=== PATIENT | male | born 1975 | race Caucasian/White ===

== ENCOUNTER 2020-07-28 11:24 | Outpatient (CLI) | payer OTHER, SELFPAY ==
--- NOTE | ~2020-07-28 | XR_ITS ---
XR wrist RT min 3V DATE: 07/28/2020 12:01 INDICATION: Acute right wrist fracture one month ago. Pain. TECHNIQUE: 4 views including AP and lateral projections COMPARISON: None FINDINGS: There is a comminuted intra-articular fracture of the distal radius. There is up to 6 or 7 mm anterior distraction/separation of the anterior articular fragment. There is some sclerosis and pe riosteal reaction indicating healing. No other fracture is evident. No dislocation. IMPRESSION: Comminuted intra-articular fracture of the distal radius Reviewed, dictated and finalized at location B.
[2020-07-28 12:07] LABS: Basophils Absolute Auto 0.1 K/mm3 (0.0-0.1); Basophils Percent Auto 0.8 % (0.2-1.2); Eosinophils Absolute Auto 0.2 K/mm3 (0-0.3); Eosinophils Percent Auto 1.7 % (0-4.4); Hematocrit 45.7 % (42.0-52.0); Hemoglobin 15.3 g/dL (14.0-18.0); Immature Granulocyte Absolute 0.12 K/mm3 (0.00-0.031); Immature Granulocyte Percent A 1.1 % (0-0.5); Immature Platelet Fraction Pct 20.8 % (0.9-11.2); Lymphocytes Absolute Auto 3.08 K/mm3 (0.9-3.2); Mean Corpuscular HGB Conc 33.5 g/dl (32-36); Mean Corpuscular Hemoglobin 32.6 pg (26-34); Mean Corpuscular Volume 97.2 fl (80-100); Monocytes Absolute Auto 1.1 K/mm3 (0.1-0.6); Monocytes Percent Auto 9.7 % (2.6-8.5); Neutrophils Absolute Auto 6.5 K/mm3 (1.3-6.7); Neutrophils Percent Auto 58.7 % (45.5-73.1); Platelet Count Result 205 k/mm3 (150-375); Red Cell Distribution Width 13.2 % (11.5-14.5)
[2020-07-28 12:15] LABS: Alanine Aminotransferase 42 U/L (4-50); Albumin Level 4.2 g/dL (3.5-5.1); Alkaline Phosphatase 123 U/L (38-126); Anion Gap 6 mmol/L (8-16); Aspartate Amino Transferase 31 U/L (17-59); Bilirubin,Total 0.4 mg/dL (0.2-1.3); Blood Urea Nitrogen 12 mg/dL (9-20); Calcium 9.6 mg/dL (8.4-10.2); Carbon Dioxide 28 mmol/L (22-30); Chloride 106 mmol/L (98-107); Cholesterol 230 mg/dL (0-200); Estimated Glomerular Filt Rate > 60; Glucose 103 mg/dL (75-110); HDL Direct 38 mg/dL; Potassium 4.1 mmol/L (3.4-5.0); Sodium 140 mmol/L (137-145); Triglycerides 204 mg/dL (<150)
[2020-07-28 12:26] LABS: LDL Cholesterol Direct 154 mg/dL
[2020-07-28 12:45] LABS: Prostate Specific Antigen 0.6 ng/mL (< OR = 4.0); Thyroid Stimulating Hormone 0.968 uIU/mL (0.465-4.680)
[2020-07-28 13:03] LABS: Free T4 Free Thyroxine 1.06 ng/mL (0.78-2.19); Vitamin D 25 Hydroxy 39.7 ng/mL
[2020-07-31 08:03] LABS: Triiodothyronine T3 Free 3.2 pg/mL (2.3-4.2)
== END 2020-07-28 11:25 | disposition home or self-care (01) ==
PROVIDERS: PCP Family Medicine
DX: E55.9 Vitamin D deficiency, unspecified (principal); Z12.5 Encounter for screening for malignant neoplasm of prostate; Z13.29 Encounter for screening for other suspected endocrine disorder; Z13.220 Encounter for screening for lipoid disorders; Z13.6 Encounter for screening for cardiovascular disorders; Z13.0 Encounter for screening for diseases of the blood and blood-forming organs and certain disorders involving the immune mechanism; I10 Essential (primary) hypertension; S52.571A Other intraarticular fracture of lower end of right radius, initial encounter for closed fracture; X58.XXXA Exposure to other specified factors, initial encounter
CPT/HCPCS: 36415; 73110; 80053; 80061; 82306; 84153; 84439; 84443; 84481; 85025; 85055; G0103

== ENCOUNTER 2020-10-11 14:56 | Outpatient (CLI) | payer OTHER, SELFPAY ==
[2020-10-11 16:23] LABS: Prostate Specific Antigen 0.5 ng/mL (< OR = 4.0); Total Triiodothyronine (T3) 1.14 NG/ML (0.97-1.69)
[2020-10-11 17:31] LABS: Free T4 Free Thyroxine 1.12 ng/mL (0.78-2.19); Vitamin D 25 Hydroxy 34.9 ng/mL
[2020-10-14 04:49] LABS: FSH 8.6 mIU/mL (1.6-8.0); Prolactin 7.3 ng/mL (***)
[2020-10-14 11:24] LABS: Sex Hormone Binding Globulin 19 nmol/L (10-50)
[2020-10-14 17:53] LABS: Testosterone Free 44.3 pg/mL (35.0-155.0); Testosterone Total 262 ng/dL (250-1100)
== END 2020-10-11 14:57 | disposition home or self-care (01) ==
PROVIDERS: PCP Family Medicine; Visit Provider Nurse Practitioner Family
DX: N52.9 Male erectile dysfunction, unspecified (principal)
CPT/HCPCS: 36415; 82306; 83001; 83002; 84146; 84153; 84270; 84402; 84403; 84439; 84443; 84480; G0103

== ENCOUNTER 2021-01-03 13:58 | Emergency (ER) | payer OTHER, SELFPAY ==
--- NOTE | ~2021-01-03 | XR_ITS ---
EXAMINATION: XR chest 2V DATE: 01/03/2021 14:47 INDICATION: Shortness of breath and cough TECHNIQUE: Frontal and lateral views of the chest are obtained COMPARISON: 01/19/2007 FINDINGS: The lungs are free of acute opacities. There is no pleural effusion or pneumothorax. The ca rdiomediastinal silhouette is normal. There is moderate thoracic spondylosis. There are partially hector ged changes of posterior lumbar fusion procedure. IMPRESSION: 1. No acute cardiopulmonary abnormality. Reviewed, dictated and finalized at location A.
[2021-01-03 14:19] VITALS: BP 132/67; PULSE 76; RESP 20; TEMP 37.8; O2SAT 98
--- NOTE | 2021-01-03 14:23 | ECG_ITS ---
Measurements Intervals [place] Rate: 75 P: 44 TX: 171 QRS: 23 QRSD: 97 T: 10 QT: 298 QTc: 334 Interpretive Statements SINUS RHYTHM VOLTAGE CRITERIA FOR LVH MINIMAL Q WAVES- HIGH LATERAL LEADS NONSPECIFIC T-WAVE ABNORMALITY- INF/LAT LEADS BORDERLINE ECG Electronically Signed On 01-03-2021 16:38:11 CDT by Adolfo Yates D.O.
[2021-01-03 14:42] LABS: Basophils Absolute Auto 0.1 K/mm3 (0.0-0.1); Basophils Percent Auto 0.8 % (0.2-1.2); Eosinophils Absolute Auto 0.4 K/mm3 (0-0.3); Eosinophils Percent Auto 2.7 % (0-4.4); Hematocrit 41.1 % (42.0-52.0); Immature Granulocyte Absolute 0.23 K/mm3 (0.00-0.031); Immature Granulocyte Percent A 1.6 % (0-0.5); Immature Platelet Fraction Pct 18.8 % (0.9-11.2); Lymphocytes Absolute Auto 3.51 K/mm3 (0.9-3.2); Lymphocytes Percent Auto 24.5 % (18.3-44.2); Mean Corpuscular HGB Conc 34.1 g/dl (32-36); Mean Corpuscular Volume 96.9 fl (80-100); Monocytes Absolute Auto 0.9 K/mm3 (0.1-0.6); Monocytes Percent Auto 6.5 % (2.6-8.5); Neutrophils Absolute Auto 9.2 K/mm3 (1.3-6.7); Neutrophils Percent Auto 63.9 % (45.5-73.1); Platelet Count Result 161 k/mm3 (150-375); Red Blood Count 4.24 M/mm3 (4.6-6.20); Red Cell Distribution Width 13.6 % (11.5-14.5); White Blood Count 14.3 K/mm3 (4.5-10.0)
[2021-01-03 14:51] LABS: Anion Gap 9 mmol/L (8-16); Blood Urea Nitrogen 10 mg/dL (9-20); Calcium 8.9 mg/dL (8.4-10.2); Carbon Dioxide 23 mmol/L (22-30); Chloride 106 mmol/L (98-107); Estimated CRCL calculation 110 ml/min; Estimated Glomerular Filt Rate > 60; Glucose 153 mg/dL (65-110); Potassium 3.4 mmol/L (3.4-5.0); Sodium 138 mmol/L (137-145)
[2021-01-03 14:58] LABS: Platelet Estimate Adequate (Adequate)
[2021-01-03 17:06] VITALS: BP 135/72; PULSE 72; TEMP 36.8; O2SAT 97
--- NOTE | 2021-01-03 17:54 | ED.GENADULT ---
HPI - General Adult General Chief complaint: Shortness of Breath/Dyspnea Stated complaint: SOB with exertion Time Seen by Provider: 01/03/21 17:53 Source: patient Mode of arrival: ambulatory Limitations: no limitations History of Present Illness HPI narrative: Patient is here for recurrent shortness of breath. He states that since September he has been seen in several hospitals and treated with inhalers and to 5-day courses of steroids for shortness of breath diagnosed as with bronchitis and COPD. He states that he is fine on steroids, as it is a stop he starts wheezing again despite being on albuterol nebulizer and inhaler at home. He had Covid 4 weeks ago. 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 He denies any fever. He has had a productive cough he states that last night was productive of a very thick substance. He did not see the color as it was dark outside. He can no longer sleep lying down, states he feels like his lungs are filling up with fluid . Onset (ago): month(s) Relieving factors: none Exacerbating factors: movement Related Data Allergies Allergy/AdvReac Type Severity Reaction Status Date / Time baclofen AdvReac Intermediate Dyspnea / Verified 12/08/20 11:22 SOB Review of Systems Review of Systems: All systems reviewed & are unremarkable except as noted in HPI and below [facility] Surgical History Surgical History (Updated 01/03/21 @ 18:15 by Gabbie Navarro PA-C) H/O spinal fusion Social History Social History Smoking packs per day: 0.5 Smoking cigarettes per day: 10.0 Years smoked: 30 Smoking pack-years: 15.00 Smoking status: Current every day smoker Tobacco type: cigarettes Spiritual care concerns: No Exam Const: General: healthy appearing, no acute distress and alert Orientation/consciousness: patient oriented x3 HENMT: Head: normal to inspection Eyes: Pupils: Equal, round and reactive pupils present Neck: Neck: no lymphadenopathy Resp: Effort & Inspection: normal respiratory effort Auscultation: wheezes expiratory wheezes and throughout Cardio: Rate: regular rate Rhythm: regular rhythm Skin: General skin exam: normal color Extrem: General: normal to inspection Psych: Mental Status: mental status grossly normal Course Course Emergency Course: This patient has had 2 oral courses of steroids in the past 3 months will start on inhaled steroid with long-acting bronchodilator. Lung sounds are clear after his breathing treatment. Vital Signs Vital signs: Vital Signs Temperature 37.8 C H 01/03/21 14:19 Pulse Rate 76 01/03/21 14:19 Respiratory Rate 20 01/03/21 14:19 Blood Pressure 132/67 01/03/21 14:19 Pulse Oximetry 98 01/03/21 14:19 Temperature 36.8 C 01/03/21 17:06 Pulse Rate 79 01/03/21 19:35 Respiratory Rate 20 01/03/21 19:35 Blood Pressure 133/84 01/03/21 19:35 Pulse Oximetry 98 01/03/21 19:35 Medical Decision Making Vital Signs Vital Signs: Vital Signs Temperature 37.8 C H 01/03/21 14:19 Pulse Rate 76 01/03/21 14:19 Respiratory Rate 20 01/03/21 14:19 Blood Pressure 132/67 01/03/21 14:19 Pulse Oximetry 98 01/03/21 14:19 Temperature 36.8 C 01/03/21 17:06 Pulse Rate 79 01/03/21 19:35 Respiratory Rate 20 01/03/21 19:35 Blood Pressure 133/84 01/03/21 19:35 Pulse Oximetry 98 01/03/21 19:35 Lab Data Result diagrams: 01/03/21 14:29 01/03/21 14:29 Labs: Lab Results 01/03/21 01/03/21 01/03/21 Range/Units 14:29 14:29 14:29 WBC 14.3 H (4.5-10.0) K/mm3 RBC 4.24 L (4.6-6.20) M/mm3 Hgb 14.0 (14.0-18.0) g/dL Hct 41.1 L (42.0-52.0) % MCV 96.9 (80-100) fl MCH 33.0 (26-34) pg MCHC 34.1 (32-36) g/dl RDW 13.6 (11.5-14.5) % Plt Count 161 (150-375) k/mm3 MPV 13.0 H (7.4-10.4) fl Immature Gran % (Auto) 1.6 H (0-0.5) % Neut % (Auto) 63.9 (45.5-73.1) % Lymph % (Auto)
--- NOTE | 2021-01-03 18:00 | PC.NURSE ---
Called lab and spoke to Lorrie to add on BNP [phone]
[2021-01-03 18:20] VITALS: BP 137/86; PULSE 72; RESP 16; O2SAT 98
[2021-01-03 18:22] LABS: NT Pro B Type Natriuretic Pept 39 pg/mL (5-100)
[2021-01-03] MEDS: ALBUTEROL SULFATE NEB 2.5 MG/3 ML INH 5 MG INHALATION (18:25)
--- NOTE | 2021-01-03 19:30 | PC.NURSE ---
Assumed care of pt at this time. Pt alert and upright on stretcher, neb treatment in place. Pt updated on POC.
[2021-01-03 19:35] VITALS: BP 133/84; PULSE 79; RESP 20; O2SAT 98
[2021-01-03 20:55] VITALS: BP 121/77; PULSE 69; RESP 16; O2SAT 100
== END 2021-01-03 20:58 | disposition home or self-care (01) ==
PROVIDERS: Emergency Medicine; Physician Assistant; Emergency Provider Emergency Medicine; PCP Family Medicine
DX: J45.41 Moderate persistent asthma with (acute) exacerbation (principal); J44.9 Chronic obstructive pulmonary disease, unspecified; Z98.1 Arthrodesis status; Z86.16 Personal history of COVID-19; F17.210 Nicotine dependence, cigarettes, uncomplicated
CPT/HCPCS: 36415; 71046; 80048; 83880; 85025; 85055; 93005; 99284

== ENCOUNTER 2021-08-01 17:04 | Emergency (ER) | payer OTHER, SELFPAY ==
--- NOTE | ~2021-08-01 | CT_ITS ---
EXAMINATION: CT brain wo con DATE: 08/01/2021 18:28 INDICATION: Headaches. Vision changes. TECHNIQUE: Computed tomography (CT) of the head was performed without intravenous contrast. The mA wa s adjusted according to patient size. Iterative reconstruction technique was employed. Exam dose: 60 5.33 mGy-cm total exam DLP. COMPARISON: 01/19/2007 CT brain FINDINGS: No intracranial mass lesion or hemorrhage or cerebrovascular accident. No midline shift or mass effect effect. Normal ventricular size. No subdural or epidural disha. The orbits are unremarkable. No fracture or bone destruction of the cranial vault. Mild patchy soft tissue thickening of the left ethmoid air cells. The included paranasal sinuses are otherwise unremarkable. The mastoid air cells are aerated. IMPRESSION: No significant abnormality Reviewed, dictated and finalized at Location A. Reviewed, dictated and finalized at location A. IMPRESSION: No significant abnormality
[2021-08-01 17:30] VITALS: BP 149/79; PULSE 66; RESP 18; TEMP 36.6; O2SAT 98
--- NOTE | 2021-08-01 18:14 | ED.EYEPROB ---
HPI - Eye Problem General Chief complaint: Eye Problems <Milly Workman PA-C - Last Filed: 08/01/21 19:51> Stated complaint: left eye tunnel vision <Milly Workman PA-C - Last Filed: 08/01/21 19:51> Time Seen by Provider: 08/01/21 17:54 <Milly Workman PA-C - Last Filed: 08/01/21 19:51> Source: patient <Milly Workman PA-C - Last Filed: 08/01/21 19:51> Mode of arrival: ambulatory <Milly Workman PA-C - Last Filed: 08/01/21 19:51> Limitations: no limitations <ABEL Mcgarry Last Filed: 08/01/21 19:51> History of Present Illness HPI Narrative: Patient is a 45-year-old male, with Hx of HTN, HLD, who presents to the ED with report of headaches and vision changes. Patient reports the symptoms have been happening for the past 4 weeks. He states in the mornings he first experiences a sensation that he describes of having water fci filling his left eye, like his eye is swimming. He states he has blurry vision in the center of his eye and the periphery is dark/shaded. He does report occasionally it seems like a shade is coming down on his left eye. He states this water sensation will last for 15 to 20 minutes at a time. After this initial water sensation, he experiences flashes of floaters and light in his left eye. He then experiences a headache approximately 3 hours later. He states the headache initially begins behind his left eye, like pressure behind his eye, then proceeds to the top of his head. He does take ibuprofen for this relieves his pain. The flashes and floaters will present intermittently throughout the day. He states the symptoms occur every day. 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 He saw his PCP for this today and was advised to come to the ER for further evaluation. Patient also mentions having an episode of disequilibrium 2 weeks ago while at work, noting he felt like he was walking sideways. He experienced the floaters just before that. Patient denies any fevers, chills, pain with eye movement, color loss, redness, eye discharge. No N/V, photophobia, phonophobia, weakness, numbness. <Milly Workman PA-C - Last Filed: 08/01/21 19:51> Related Data Allergies/adverse reactions: Allergies Allergy/AdvReac Type Severity Reaction Status Date / Time baclofen AdvReac Intermediate Dyspnea / Verified 08/01/21 18:17 SOB <Milly Workman PA-C - Last Filed: 08/01/21 19:51> Review of Systems Review of Systems: CONSTITUTIONAL: Denies fever, chills. EYES: Reports left eye blurry vision centrally, dark peripherally, flashers/floaters. Denies photophobia, redness, or discharge. ENT: Denies phonophobia. GASTROINTESTINAL: Denies nausea, vomiting. GENITOURINARY: Denies dysuria or hematuria. NEUROLOGIC: Reports headache. Denies numbness, or weakness. <Milly Workman PA-C - Last Filed: 08/01/21 19:51> All systems reviewed & are unremarkable except as noted in HPI and below <Milly Workman PA-C - Last Filed: 08/01/21 19:51> [facility] Past Medical History Medical History: Medical History Hyperlipidemia Hypertension <Milly Workman PA-C - Last Filed: 08/01/21 19:51> Surgical History Surgical History: Surgical History H/O spinal fusion <Milly Workman PA-C - Last Filed: 08/01/21 19:51> Social History Social History: Social History Smoking packs per day: 0.5 Smoking cigarettes per day: 10.0 Years smoked: 30 Smoking pack-years: 15.00 Smoking status: Current every day smoker Tobacco type: cigarettes Spiritual care concerns: No <Milly Workman PA-C - Last Filed: 08/01/21 19:51> Exam Narrative: GENERAL: Well appearing, well-nourished, non-toxic, in no acute distress.
[2021-08-01 19:43] VITALS: BP 136/79; PULSE 76; RESP 18; O2SAT 98
[2021-08-01] MEDS: ACETAMINOPHEN 500 MG TABLET 1000 MG PO (19:50)
--- NOTE | 2021-08-01 19:54 | PC.NURSE ---
Pt and provider discussed need for transfer. Pt and provider discussed pt going by private vehicle. Pt and agreed. is transporting pt. Pt signed consent. CT called for disk. Report called to Keyana at [facility]
== END 2021-08-01 20:04 | disposition short-term general hospital (02) ==
PROVIDERS: Emergency Provider Emergency Medicine; PCP Family Medicine
DX: R51.9 Headache, unspecified (principal); H53.8 Other visual disturbances; H43.392 Other vitreous opacities, left eye; E78.5 Hyperlipidemia, unspecified; I10 Essential (primary) hypertension; F17.210 Nicotine dependence, cigarettes, uncomplicated; Z98.1 Arthrodesis status
CPT/HCPCS: 70450; 99284; A9270

== ENCOUNTER 2021-08-13 13:25 | Outpatient (CLI) | payer OTHER, SELFPAY ==
--- NOTE | ~2021-08-13 | MR_ITS ---
. EXAMINATION: MR brain/brain stem wo/w con DATE: 08/13/2021 14:23 INDICATION: Headache. Visual disturbance. TECHNIQUE: Magnetic resonance imaging (MRI) of the brain and brainstem was performed without and with 18 mL MultiHance intravenous contrast. Sequences included sagittal and axial T1-weighted FSE, axial diffusion-weighted FS EPI, axial T2*-weighted GRE, axial T2-weighted FLAIR Propeller, and axial T2-we ighted Propeller. Postcontrast sequences included axial and coronal T1-weighted FSE. Apparent diffusi on coefficient (ADC) maps were created. COMPARISON: Head CT 08/01/2021 FINDINGS: There is no intracranial hemorrhage, acute infarction, or abnormal intracranial mass lesion . The ventricles are normal in size. The orbits are normal. There is mild mucosal thickening in the p aranasal sinuses. The mastoid air cells are normal. IMPRESSION: 1. Normal brain. Reviewed, dictated and finalized at location A. IMPRESSION: 1. Normal brain.
[2021-08-13 14:02] LABS: Estimated Glomerular Filt Rate > 60
== END 2021-08-13 13:26 | disposition home or self-care (01) ==
PROVIDERS: PCP Family Medicine; Visit Provider Nurse Practitioner Adult Health
DX: R51.9 Headache, unspecified (principal); H53.9 Unspecified visual disturbance
CPT/HCPCS: 70553; A9577

== ENCOUNTER 2021-09-18 14:59 | Emergency (ER) | payer OTHER, SELFPAY ==
--- NOTE | ~2021-09-18 | CT_ITS ---
EXAMINATION: CT abdomen pelvis wo con DATE: 09/18/2021 16:32 INDICATION: L flank pain r/o stone TECHNIQUE: Computed tomography (CT) of the abdomen and pelvis was performed without intravenous contr ast. Automated exposure control and iterative reconstruction technique were employed. The dose-length product was 702.46 mGy-cm. COMPARISON: None FINDINGS: Lower thorax: Unremarkable Liver: Normal. Biliary/Gallbladder: Gallbladder is normal. No bile duct dilation. Pancreas: No mass or duct dilation. Spleen: Normal. Adrenals:No mass. Kidneys: No mass, stone, or hydronephrosis. GI tract: No small or large bowel dilation. Normal appendix. Mesentery/Peritoneum: No ascites, mass, or free air. Retroperitoneum: No mass. Mild abdominal aortic atherosclerotic calcification. Pelvis: Pelvic organs are within normal limits. Soft Tissues: Soft tissues and body wall unremarkable. Bones: No acute osseous finding. Uncomplicated L1-2 and L4-5 fusions. IMPRESSION: No acute abdominopelvic process. Reviewed, dictated and finalized at location K.
[2021-09-18 15:02] VITALS: BP 137/71; PULSE 66; RESP 18; TEMP 35.6; O2SAT 98
[2021-09-18 15:27] LABS: Basophils Absolute Auto 0.1 K/mm3 (0.0-0.1); Basophils Percent Auto 0.8 % (0.2-1.2); Eosinophils Absolute Auto 0.2 K/mm3 (0-0.3); Eosinophils Percent Auto 1.7 % (0-4.4); Hematocrit 41.9 % (42.0-52.0); Hemoglobin 14.3 g/dL (14.0-18.0); Immature Granulocyte Absolute 0.06 K/mm3 (0.00-0.031); Immature Granulocyte Percent A 0.4 % (0-0.5); Immature Platelet Fraction Pct 21.5 % (0.9-11.2); Lymphocytes Absolute Auto 2.52 K/mm3 (0.9-3.2); Lymphocytes Percent Auto 18.7 % (18.3-44.2); Mean Corpuscular HGB Conc 34.1 g/dl (32-36); Mean Corpuscular Hemoglobin 33.6 pg (26-34); Mean Corpuscular Volume 98.6 fl (80-100); Mean Platelet Volume 13.4 fl (7.4-10.4); Monocytes Absolute Auto 1.3 K/mm3 (0.1-0.6); Monocytes Percent Auto 9.3 % (2.6-8.5); Neutrophils Absolute Auto 9.3 K/mm3 (1.3-6.7); Neutrophils Percent Auto 69.1 % (45.5-73.1); Platelet Count Result 166 k/mm3 (150-375); Red Blood Count 4.25 M/mm3 (4.6-6.20); Red Cell Distribution Width 14.1 % (11.5-14.5); White Blood Count 13.5 K/mm3 (4.5-10.0)
[2021-09-18 15:34] LABS: Alanine Aminotransferase 25 U/L (6-50); Albumin Level 4.2 g/dL (3.5-5.1); Alkaline Phosphatase 111 U/L (38-126); Anion Gap 5 mmol/L (8-16); Aspartate Amino Transferase 34 U/L (17-59); Bilirubin,Total 0.4 mg/dL (0.2-1.3); Blood Urea Nitrogen 12 mg/dL (9-20); Calcium 8.5 mg/dL (8.4-10.2); Carbon Dioxide 24 mmol/L (22-30); Chloride 107 mmol/L (98-107); Estimated CRCL calculation 105 ml/min; Estimated Glomerular Filt Rate > 60; Glucose 92 mg/dL (65-110); Potassium 3.9 mmol/L (3.4-5.0); Sodium 136 mmol/L (137-145)
[2021-09-18 16:04] LABS: Appearance Urine Clear (Clear); Bilirubin Urine Negative (Negative); Blood Urine Negative (Negative); Color Urine Yellow (Yellow); Glucose Urine UA Negative (Negative); Ketones Urine Negative (Negative); Leukocyte Esterase Ur Negative LEU/UL (Negative); Nitrate Urine Negative (Negative); Protein Urine Negative (Negative); Specific Grav Ur >= 1.030 (1.001-1.035); Urobilinogen Urine 0.2 mg/dL (<2.0); pH Urine 6.5 (5.0-9.0)
[2021-09-18 16:11] LABS: Mucus Urine Rare /lpf; RBC Urine 0-2 /hpf (0-2); Squamous Epithelial Cell Urine Rare /hpf (Few); WBC Urine 0-3 /hpf
[2021-09-18 16:14] LABS: Add Urine Microscopic? YES
[2021-09-18] MEDS: SODIUM CHLORIDE 0.9% IV 1,000 ML 999 ML IV CONT (16:35)
[2021-09-18] MEDS: MORPHINE SULFATE (*CRX) 4 MG/ML INJ IV PUSH (16:35)
--- NOTE | 2021-09-18 17:13 | ED.ABDPAIN ---
HPI - Abdominal Pain General Chief Complaint: Abdominal Pain Stated Complaint: L FLANK/ABD PAIN Time Seen by Provider: 09/18/21 15:35 Source: patient History of Present Illness HPI narrative: Patient presents with left flank pain. Patient ports symptoms started around 1:00 started in his back felt like a muscle spasm was sharp. Try to manage his symptoms at home with rest and hot baths however is pain progressed and started shooting down his groin. Reports it is very severe causing nausea he was concerned so came to the ER for evaluation. Denies any fevers cough congestion chest pain or shortness of breath. Denies any diarrhea or difficulty with urination. Does report his urine was dark prior to ER arrival. On ER arrival reports his symptoms have been improving. Pain is in his left flank sharp constant, improving no clear aggravating or alleviating factors Related Data Allergies Allergy/AdvReac Type Severity Reaction Status Date / Time baclofen AdvReac Intermediate Dyspnea / Verified 09/18/21 15:05 SOB Review of Systems Review of Systems: CONSTITUTIONAL: Denies fever, chills, or sweats. EYES: Denies visual changes, redness, or discharge. ENT: Denies rhinorrhea, congestion, sore throat, or otalgia. CARDIOVASCULAR: Denies chest pain, palpitations, or edema. RESPIRATORY: Denies cough or dyspnea. GASTROINTESTINAL: Denies vomiting, or diarrhea. GENITOURINARY: Denies dysuria or hematuria. SKIN: Denies rash or itching. MUSCULOSKELETAL: Denies joint pain, or myalgia. NEUROLOGIC: Denies headache, numbness, dizziness, or weakness. PSYCHIATRIC: Denies anxiety or depression. All systems reviewed & are unremarkable except as noted in HPI and below PMFSH Past Medical History Medical History Hyperlipidemia Hypertension Surgical History Surgical History H/O spinal fusion Social History Social History Smoking packs per day: 0.5 Smoking cigarettes per day: 10.0 Years smoked: 30 Smoking pack-years: 15.00 Smoking status: Current every day smoker Tobacco type: cigarettes Spiritual care concerns: No Exam Narrative: GENERAL: Well-appearing, well-nourished, and in no acute distress. HEAD: Normocephalic, atraumatic. EYES: PERRLA and EOMI. ENT: Nares clear, no rhinorrhea or epistaxis. Mucous membranes moist. NECK: Supple. No masses. No JVD CHEST: Clear to auscultation. No respiratory distress. No wheezes rales or rhonchi HEART: Regular rate and rhythm. No murmur heard. Normal peripheral pulses. ABDOMEN: Soft, nontender, nondistended, normal active bowel sounds. EXTREMITIES: Normal range of motion. No edema. SKIN: Warm, dry, no rash. NEURO: No focal deficits. Alert and oriented x3. PSYCH: Normal mood and affect. Course Reevaluation(s) Reevaluation #1: Patient reports feeling improved results and plan reviewed with patient. Patient is comfortable outpatient plan. Date: 09/18/21 Time: 17:13 Vital Signs Vital signs: Vital Signs Temperature 35.6 C L 09/18/21 15:02 Pulse Rate 66 09/18/21 15:02 Respiratory Rate 18 09/18/21 15:02 Blood Pressure 137/71 09/18/21 15:02 Pulse Oximetry 98 09/18/21 15:02 Temperature 35.6 C L 09/18/21 15:02 Pulse Rate 66 09/18/21 15:02 Respiratory Rate 18 09/18/21 15:02 Blood Pressure 137/71 09/18/21 15:02 Pulse Oximetry 98 09/18/21 15:02 MDM - Abdominal Pain MDM Narrative Medical decision making narrative: H&P as above, vss, pt looks clinically well, exam inability to reproduce pain on exam, labs with leukocytosis otherwise clinically unremarkable, img without acute process, additional labs/img considered. symptomatic relief available as needed, patient treated with morphine and fluids on reevaluation pt continues to looks clinically well. Suspect recent passage of ureteral stone ba
== END 2021-09-18 17:22 | disposition home or self-care (01) ==
PROVIDERS: Emergency Provider Emergency Medicine; PCP Family Medicine
DX: R10.9 Unspecified abdominal pain (principal); E78.5 Hyperlipidemia, unspecified; I10 Essential (primary) hypertension; Z98.1 Arthrodesis status; F17.210 Nicotine dependence, cigarettes, uncomplicated
CPT/HCPCS: 36415; 74176; 80053; 81001; 85025; 85055; 96374; 99284; J2270; J7030

== ENCOUNTER 2021-09-28 10:13 | Outpatient (CLI) | payer OTHER, SELFPAY ==
--- NOTE | 2021-09-28 | ECG_ITS ---
Measurements Intervals [place] Rate: 67 P: 45 NM: 178 QRS: 30 QRSD: 94 T: 29 QT: 385 QTc: 406 Interpretive Statements SINUS RHYTHM MINIMAL Q WAVES- ANTEROLAT/HIGH LAT LEADS BORDERLINE ECG Electronically Signed On 09-28-2021 10:56:22 CDT by Adolfo Yates D.O.
--- NOTE | ~2021-09-28 | US_ITS ---
EXAMINATION: US carotid duplex BI DATE: 09/28/2021 12:26 INDICATION: Generalized body weakness TECHNIQUE: Grayscale, color Doppler, and pulsed Doppler images of the cervical carotid arteries were obtained. The degree of vessel stenosis is placed in one of the following categories: normal, <50%, 5 0-69%, >=70% but less than near-occlusion, near-occlusion, or total occlusion. Note that percent sten osis relative to normal distal artery lumen diameter is indirectly measured from velocity measurement s as described by Ulysses, et al. Radiology 2003; 229:340-346. Notes: Normal: Peak systolic velocity <125 centimeters/sec and no plaque <50%. Peak systolic velocity <125 ( EDV <40; ICA/CCA PSV ratio <2.0; used these factors only a tandem lesions or low cardiac output or co ntralateral disease) 50-69 %: PSV 125-230 (EDV 40-100; ratio 2-4) >= 70% but less than near occlusion: PSV greater than 230 (EDV > 100; ratio> 4.0) Near Occlusion: PSV that is variable; markedly narrowed lumen Occlusion: Absent flow on color/spectral Doppler and no lumen on grossman scale. COMPARISON: None. FINDINGS: RIGHT: The right common carotid artery (CCA) peak systolic velocity (PSV) is 79 cm/s. The right internal car otid artery (ICA) PSV is 161 cm/s. The right ICA end-diastolic velocity (EDV) is 38 cm/s. The right I CA/CCA PSV ratio is 2.0. The external carotid artery (ECA) PSV is 174 cm/s. There is antegrade flow i n the right vertebral artery. LEFT: The left CCA PSV is 109 cm/s. The left ICA PSV is 78 cm/s. The left ICA EDV is 25 cm/s. The left ICA/ CCA PSV ratio is 0.7. The ECA PSV is 106 cm/s. There is antegrade flow in the left vertebral artery. IMPRESSION: 1. 50-69% stenosis in the right internal carotid artery by sonographic criteria. 2. Less than 50% stenosis in the left internal carotid artery by sonographic criteria. Reviewed, dictated and finalized at location A. IMPRESSION: 1. 50-69% stenosis in the right internal carotid artery by sonographic criteria . 2. Less than 50% stenosis in the left internal carotid artery by sonographic cr iteria.
--- NOTE | ~2021-09-28 | US_ITS ---
EXAMINATION: US venous doppler UE DATE: 09/28/2021 12:26 INDICATION: Generalized body weakness. TECHNIQUE: Grayscale ultrasound images without and with compression and Doppler ultrasound images of the bilateral upper extremity veins were obtained. COMPARISON: None. FINDINGS: The visualized portions of the right internal jugular vein, subclavian vein, axillary vein, brachial veins, basilic vein, cephalic vein, radial vein, and ulnar vein are patent. The visualized portions of the left internal jugular vein, subclavian vein, axillary vein, brachial v eins, basilic vein, cephalic vein, radial vein, and ulnar vein are patent. IMPRESSION: 1. No deep venous thrombosis. Reviewed, dictated and finalized at location A.
--- NOTE | 2021-09-28 13:55 | EST_ITS ---
Patient Info Name: Star Sethi Age: 46 years : 1975 Gender: Male Ht: 66 in Wt: 200 lbs BSA: 2.09 m2 HR: 68 bpm BP: 103 / 70 mmHg Heart Rhythm: Sinus Rhythm Exam Date: 09/28/2021 10:46 AM Exam Location: [facility] Stress Patient Status: Outpatient Admit Date: 09/28/2021 Staff Ordering Physician: Dylan Doll MD Attending Provider: Dylan Doll MD Exercise Technologist: Iveth Stallworth CT Exam Type: CA stress test treadmill Study Info Indications - Weakness, age related physical debility An exercise stress test was performed. Summary 1. Submaximal stress test exercising 8 minutes and 47 seconds on Eduardo protocol achieving 76% of age predicted maximum heart rate. 2. Nondiagnostic ECG changes due to sub maximal stress. However, there were no changes meeting strict criteria for reversible myocardial ischemia at workload achieved. 3. Occasional stress-induced PVCs. 4. Normal blood pressure response. 5. No chest discomfort with stress test. 6. Consider alternative stress modality if clinically indicated to improve sensitivity specificity for myocardial ischemia given submaximal exercise stress without associated imaging. Protocol: Eduardo Rest HR: 68 bpm Peak HR: 133 bpm Rest Sys BP: 103 mmHg Peak Sys BP: 190 mmHg Max Pred HR: 173 bpm % Max Pred HR: 77 % Target HR: 147 bpm Max RPP: 25,270 bpm*mmHg BP Response: Normal blood pressure response Termination Reason: Shortness of breath Cardiac Symptoms: None Max ST Seg Deviation: 1.50 mm Total Time: 8 min : 47 sec Rest Oglesby BP: 70 mmHg Peak Oglesby BP: 68 mmHg Total METS: 10.3 Resting ECG Normal sinus rhythm. Diffuse J-point elevation probable repolarization abnormality. Stress ECG Nondiagnostic ECG changes due to sub maximal stress. However, there were no changes meeting strict criteria for reversible myocardial ischemia at workload achieved. Arrhythmias Occasional stress-induced PVCs. Report Signatures
== END 2021-09-28 10:14 | disposition home or self-care (01) ==
LOC: ANHCARD 10:18
PROVIDERS: PCP Family Medicine; Visit Provider Family Medicine
DX: I10 Essential (primary) hypertension (principal); R53.1 Weakness; I65.23 Occlusion and stenosis of bilateral carotid arteries
CPT/HCPCS: 93005; 93017; 93880; 93970

== ENCOUNTER 2022-09-25 07:33 | Emergency (ER) | payer OTHER, SELFPAY ==
--- NOTE | ~2022-09-25 | CT_ITS ---
EXAMINATION: CT abdomen pelvis wo con DATE: 09/25/2022 08:13 INDICATION: Left flank pain TECHNIQUE: Computed tomography (CT) of the abdomen and pelvis was performed without intravenous contr ast. The dose-length product was 322.34 mGy-cm. Automated exposure control and iterative reconstructi on technique were employed. COMPARISON: CT dated 09/18/2022 FINDINGS: Heart size normal. No significant pleural or pericardial effusion. Dependent atelectasis. T he liver, spleen, pancreas, adrenal glands and kidneys are unremarkable. No renal or ureteral stones. No hydronephrosis. Gallbladder is present. Nonobstructive bowel gas pattern. There is atherosclerosi s of the aorta without evidence for aneurysm. No lymphadenopathy. No free air or free fluid. There ar e fusion changes at L1-2 and L4-5. There is advanced lumbar spondylosis. No focal lytic or blastic le sions. IMPRESSION: 1. No acute abdominal abnormality. Reviewed, dictated and finalized at location L.
[2022-09-25 07:44] VITALS: BP 146/84; PULSE 58; RESP 18; TEMP 37.1; O2SAT 98
[2022-09-25 08:04] LABS: Appearance Urine Clear (Clear); Basophils Absolute Auto 0.1 K/mm3 (0.0-0.1); Bilirubin Urine Negative (Negative); Blood Urine Negative (Negative); Color Urine Yellow (Yellow); Eosinophils Absolute Auto 0.1 K/mm3 (0-0.3); Eosinophils Percent Auto 1.4 % (0-4.4); Glucose Urine UA Negative (Negative); Hematocrit 41.8 % (42.0-52.0); Hemoglobin 14.1 g/dL (14.0-18.0); Immature Granulocyte Absolute 0.03 K/mm3 (0.00-0.031); Immature Granulocyte Percent A 0.3 % (0-0.5); Immature Platelet Fraction Pct 20.1 % (0.9-11.2); Ketones Urine Negative (Negative); Leukocyte Esterase Ur Negative LEU/UL (Negative); Lymphocytes Absolute Auto 2.43 K/mm3 (0.9-3.2); Lymphocytes Percent Auto 25.7 % (18.3-44.2); Mean Corpuscular HGB Conc 33.7 g/dl (32-36); Mean Corpuscular Hemoglobin 32.6 pg (26-34); Mean Corpuscular Volume 96.8 fl (80-100); Mean Platelet Volume 13.5 fl (7.4-10.4); Monocytes Absolute Auto 0.9 K/mm3 (0.1-0.6); Monocytes Percent Auto 9.5 % (2.6-8.5); Neutrophils Absolute Auto 5.9 K/mm3 (1.3-6.7); Neutrophils Percent Auto 62.1 % (45.5-73.1); Nitrate Urine Negative (Negative); Platelet Count Result 163 k/mm3 (150-375); Protein Urine Negative (Negative); Red Blood Count 4.32 M/mm3 (4.6-6.20); Red Cell Distribution Width 13.5 % (11.5-14.5); Specific Grav Ur 1.026 (1.001-1.035); White Blood Count 9.5 K/mm3 (4.5-10.0); pH Urine 5.5 (5.0-9.0)
[2022-09-25 08:07] LABS: Add Urine Microscopic? NO
[2022-09-25 08:13] LABS: Alanine Aminotransferase 47 U/L (6-50); Albumin Level 4.4 g/dL (3.5-5.1); Alkaline Phosphatase 99 U/L (38-126); Anion Gap 7 mmol/L (8-16); Aspartate Amino Transferase 46 U/L (17-59); Bilirubin,Total 0.6 mg/dL (0.2-1.3); Blood Urea Nitrogen 15 mg/dL (9-20); Calcium 8.8 mg/dL (8.4-10.2); Carbon Dioxide 25 mmol/L (22-30); Chloride 106 mmol/L (98-107); Estimated CRCL calculation 109 ml/min; Estimated Glomerular Filt Rate > 60; Glucose 114 mg/dL (65-110); Sodium 138 mmol/L (137-145)
--- NOTE | 2022-09-25 09:18 | ED.ABDPAIN ---
HPI - Abdominal Pain General Chief Complaint: Abdominal Pain Stated Complaint: abd pain Time Seen by Provider: 09/25/22 07:45 Source: patient Mode of arrival: ambulatory Limitations: no limitations History of Present Illness HPI narrative: 47-year-old with a history of hypertension, hyperlipidemia, here with complaints of sudden onset of left lower abdominal pain started about 430 this morning while he was at work. He denied any nausea, vomiting or diarrhea. No history of kidney stones. Denied any urinary symptoms. MD elicited complaint: abdominal pain Pertinent past history: none Onset (ago): hour(s) (4) Pain Consistency: intermittent Location: LLQ Severity: moderate Quality: aching and sharp Radiation: none Exacerbating factors: nothing Relieving factors: nothing Associated symptoms: denies other symptoms Related Data Allergies Allergy/AdvReac Type Severity Reaction Status Date / Time baclofen AdvReac Intermediate Dyspnea / Verified 09/18/21 15:05 SOB Review of Systems Review of Systems: All systems reviewed & are unremarkable except as noted in HPI and below Constitutional: Constitutional: Reports no additional constitutional complaints Eyes: Eyes: Reports no additional eye complaints ENT: Reports system reviewed and no additional complaints, except as documented Cardiovascular: Cardiovascular: Reports no additional cardiovascular complaints Respiratory: Respiratory: Reports no additional respiratory complaints Gastrointestinal: Gastrointestinal: Reports as per HPI Genitourinary: Genitourinary: Reports no additional male genitourinary complaints Musculoskeletal: Musculoskeletal: Reports no additional musculoskeletal complaints PMFSH Past Medical History Medical History Hyperlipidemia Hypertension Surgical History Surgical History H/O spinal fusion Social History Social History Smoking packs per day: 0.5 Smoking cigarettes per day: 10.0 Years smoked: 30 Smoking pack-years: 15.00 Smoking status: Current every day smoker Tobacco type: cigarettes Spiritual care concerns: No Exam Narrative: GENERAL: Well-appearing, well-nourished, and in no acute distress. HEAD: Normocephalic, atraumatic. EYES: PERRLA and EOMI. NECK: Supple. CHEST: Clear to auscultation. No respiratory distress. HEART: Regular rate and rhythm. No murmur heard. Normal peripheral pulses. ABDOMEN: Soft, nontender, nondistended, normal active bowel sounds. EXTREMITIES: Normal range of motion. No edema. SKIN: Warm, dry, no rash. NEURO: No focal deficits. Alert and oriented x3. PSYCH: Normal mood and affect. Course Course Emergency Course: Patient is asymptomatic while she was here in the ER informed him about his lab work, CT findings. Advised him to take pain medication as prescribed. Follow-up with his primary doctor Vital Signs Vital signs: Vital Signs Temperature 37.1 C 09/25/22 07:44 Pulse Rate 58 L 09/25/22 07:44 Respiratory Rate 18 09/25/22 07:44 Blood Pressure 146/84 H 09/25/22 07:44 Pulse Oximetry 98 09/25/22 07:44 Temperature 37.1 C 09/25/22 07:44 Pulse Rate 58 L 09/25/22 07:44 Respiratory Rate 18 09/25/22 07:44 Blood Pressure 146/84 H 09/25/22 07:44 Pulse Oximetry 98 09/25/22 07:44 MDM - Abdominal Pain Differential Diagnosis Differential diagnosis: Likely calculus of kidney, diverticulitis, gastroenteritis and other (Muscle strain) Lab Data 09/25/22 07:53 09/25/22 07:53 Labs: Lab Results 09/25/22 Range/Units 07:53 WBC 9.5 (4.5-10.0) K/mm3 RBC 4.32 L (4.6-6.20) M/mm3 Hgb 14.1 (14.0-18.0) g/dL Hct 41.8 L (42.0-52.0) % MCV 96.8 (80-100) fl MCH 32.6 (26-34) pg MCHC 33.7 (32-36) g/dl RDW 13.5 (11.5-14.5) % Plt Count 16
[2022-09-25 09:39] VITALS: BP 144/84; PULSE 58; RESP 16; O2SAT 97
== END 2022-09-25 09:40 | disposition home or self-care (01) ==
PROVIDERS: Emergency Provider Family Medicine; PCP Family Medicine
DX: R10.32 Left lower quadrant pain (principal); I10 Essential (primary) hypertension; E78.5 Hyperlipidemia, unspecified; F17.210 Nicotine dependence, cigarettes, uncomplicated; Z98.1 Arthrodesis status
CPT/HCPCS: 36415; 74176; 80053; 81003; 85025; 85055; 99284

== ENCOUNTER 2022-11-26 10:10 | Emergency (ER) | payer OTHER, SELFPAY ==
[2022-11-26 10:23] VITALS: BP 129/74; PULSE 61; RESP 18; TEMP 36.4; O2SAT 98
--- NOTE | 2022-11-26 10:31 | ED.ABDPAIN ---
HPI - Abdominal Pain General Chief Complaint: Abdominal Pain Stated Complaint: left abd pain Time Seen by Provider: 11/26/22 10:23 History of Present Illness HPI narrative: 47-year-old male presents to the emergency room today for complaints of right flank pain. He says it started about a week ago and it wraps around a little bit into the right abdomen. He reports that he has had some feelings of nausea over the past week but no vomiting. No diarrhea. Denies having any dysuria or hematuria. No fever or chills. He says that he does have problems with back pain but says that this does not feel like that and does not feel like a pulled muscle. He was seen in the ER in September for left lower quadrant abdominal pain. He had an abdominal CT at that time which was normal. Related Data Allergies Allergy/AdvReac Type Severity Reaction Status Date / Time baclofen AdvReac Intermediate Dyspnea / Verified 11/26/22 10:30 SOB Review of Systems Review of Systems: CONSTITUTIONAL: Denies fever, chills, or sweats. EYES: Denies visual changes, redness, or discharge. ENT: Denies rhinorrhea, congestion, sore throat, or otalgia. CARDIOVASCULAR: Denies chest pain, palpitations, or edema. RESPIRATORY: Denies cough or dyspnea. GASTROINTESTINAL: as per HPI GENITOURINARY: Denies dysuria or hematuria. SKIN: Denies rash or itching. MUSCULOSKELETAL: Denies back pain, joint pain, or myalgia. NEUROLOGIC: Denies headache, numbness, dizziness, or weakness. PSYCHIATRIC: Denies anxiety or depression. PMFSH Past Medical History Medical History Hyperlipidemia Hypertension Surgical History Surgical History H/O spinal fusion Social History Social History Smoking packs per day: 0.5 Smoking cigarettes per day: 10.0 Years smoked: 30 Smoking pack-years: 15.00 Smoking status: Current every day smoker Tobacco type: cigarettes Spiritual care concerns: No Exam Narrative: GENERAL: Well-appearing, well-nourished, and in no acute distress. HEAD: Normocephalic, atraumatic. NECK: Supple. No adenopathy or masses. No carotid bruits or JVD CHEST: Clear to auscultation. No respiratory distress. No wheezes rales or rhonchi HEART: Regular rate and rhythm. No murmur heard. Normal peripheral pulses. ABDOMEN: Soft, nontender, nondistended, normal active bowel sounds. right flank tenderness EXTREMITIES: Normal range of motion. No edema. SKIN: Warm, dry, no rash. NEURO: No focal deficits. Alert and oriented x3. PSYCH: Normal mood and affect. Course Vital Signs Vital signs: Vital Signs Temperature 36.4 C 11/26/22 10:23 Pulse Rate 61 11/26/22 10:23 Respiratory Rate 18 11/26/22 10:23 Blood Pressure 129/74 11/26/22 10:23 Pulse Oximetry 98 11/26/22 10:23 Oxygen Delivery Room Air 11/26/22 10:23 Temperature 36.4 C 11/26/22 10:23 Pulse Rate 80 11/26/22 13:30 Respiratory Rate 16 11/26/22 13:30 Blood Pressure 144/82 H 11/26/22 13:30 Pulse Oximetry 99 11/26/22 13:30 Oxygen Delivery Room Air 11/26/22 10:23 MDM - Abdominal Pain MDM Narrative Medical decision making narrative: Unremarkable work up. Normal WBC, UA normal other than trace ketones No tenderness with abdominal palpation. Abdominal imaging done in September and normal. Will avoid imaging today. Pt prescribed medication for pain and advised to have close follow up with PCP. Advised to return to ER if worsening symptoms. Lab Data Attestation: I reviewed the patient's lab results. 11/26/22 11:02 11/26/22 10:32 Labs: Lab Results 11/26/22 11/26/22 11/26/22 Range/Units 10:32 11:02 12:08 WBC 7.5 (4.5-10.0) K/mm3 RBC 3.67 L (4.6-6.20) M/mm3 Hgb 12.1 L (14.0-18.0) g/dL Hct 36.3 L (42.0-52.0) % MCV 98.9 (80-
[2022-11-26] MEDS: SODIUM CHLORIDE 0.9% IV 1,000 ML 999 ML IV CONT (10:36)
[2022-11-26] MEDS: MORPHINE SULFATE (*CRX) 4 MG/ML INJ IV PUSH (10:36)
[2022-11-26] MEDS: ONDANSETRON INJ 4 MG/2 ML VIAL IV PUSH (10:36)
[2022-11-26 10:51] LABS: Alanine Aminotransferase 38 U/L (6-50); Albumin Level 4.1 g/dL (3.5-5.1); Alkaline Phosphatase 104 U/L (38-126); Anion Gap 9 mmol/L (8-16); Aspartate Amino Transferase 39 U/L (17-59); Bilirubin,Total 0.5 mg/dL (0.2-1.3); Blood Urea Nitrogen 16 mg/dL (9-20); Calcium 8.8 mg/dL (8.4-10.2); Carbon Dioxide 24 mmol/L (22-30); Chloride 105 mmol/L (98-107); Estimated CRCL calculation 100 ml/min; Estimated Glomerular Filt Rate > 60; Glucose 149 mg/dL (65-110); Lipase 35 U/L (23-300); Potassium 3.8 mmol/L (3.4-5.0); Sodium 138 mmol/L (137-145)
[2022-11-26 11:08] LABS: Basophils Absolute Auto 0.1 K/mm3 (0.0-0.1); Basophils Percent Auto 1.1 % (0.2-1.2); Eosinophils Absolute Auto 0.2 K/mm3 (0-0.3); Eosinophils Percent Auto 3.2 % (0-4.4); Hematocrit 36.3 % (42.0-52.0); Hemoglobin 12.1 g/dL (14.0-18.0); Immature Granulocyte Absolute 0.02 K/mm3 (0.00-0.031); Immature Granulocyte Percent A 0.3 % (0-0.5); Lymphocytes Absolute Auto 2.15 K/mm3 (0.9-3.2); Lymphocytes Percent Auto 28.7 % (18.3-44.2); Mean Corpuscular HGB Conc 33.3 g/dl (32-36); Mean Corpuscular Volume 98.9 fl (80-100); Mean Platelet Volume 12.1 fl (7.4-10.4); Monocytes Absolute Auto 0.8 K/mm3 (0.1-0.6); Monocytes Percent Auto 10.7 % (2.6-8.5); Neutrophils Absolute Auto 4.2 K/mm3 (1.3-6.7); Platelet Count Result 140 k/mm3 (150-375); Red Blood Count 3.67 M/mm3 (4.6-6.20); White Blood Count 7.5 K/mm3 (4.5-10.0)
[2022-11-26 12:13] LABS: Appearance Urine Clear (Clear); Bilirubin Urine Negative (Negative); Blood Urine Negative (Negative); Color Urine Yellow (Yellow); Glucose Urine UA Negative (Negative); Ketones Urine Trace mg/dL (Negative); Leukocyte Esterase Ur Negative LEU/UL (Negative); Nitrate Urine Negative (Negative); Protein Urine Negative (Negative); Specific Grav Ur 1.026 (1.001-1.035); pH Urine 6.5 (5.0-9.0)
[2022-11-26 12:19] LABS: Add Urine Microscopic? NO
[2022-11-26 13:30] VITALS: BP 144/82; PULSE 80; RESP 16; O2SAT 99
== END 2022-11-26 13:32 | disposition home or self-care (01) ==
PROVIDERS: Emergency Provider Nurse Practitioner Family; PCP Family Medicine
DX: R10.9 Unspecified abdominal pain (principal); M54.6 Pain in thoracic spine; I10 Essential (primary) hypertension; E78.5 Hyperlipidemia, unspecified; Z98.1 Arthrodesis status; F17.210 Nicotine dependence, cigarettes, uncomplicated
CPT/HCPCS: 36415; 80053; 81003; 83690; 85025; 96361; 96374; 96375; 99284; J2270; J2405; J7030

== ENCOUNTER 2023-03-11 20:40 | Emergency (ER) | payer OTHER, SELFPAY ==
--- NOTE | ~2023-03-11 | XR_ITS ---
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 RESULT: Lines, tubes, and devices: Partially visualized lumbar fusion hardware. Lungs and pleura: Clear. Cardiomediastinal silhouette: Stable. Other: No acute osseous or upper abdominal finding. Old left clavicular fracture, healed in mild def ormity. IMPRESSION: No acute cardiopulmonary process. Reviewed, dictated and finalized at location K. OR [employer] DAT[employer]ASE ADMINISTRATOR
--- NOTE | 2023-03-11 20:45 | ECG_ITS ---
Measurements Intervals [place] Rate: 90 P: 24 CA: 144 QRS: 24 QRSD: 90 T: 35 QT: 275 QTc: 337 Interpretive Statements SINUS RHYTHM MINIMAL Q WAVES- HIGH LATERAL LEADS NONSPECIFIC T-WAVE ABNORMALITY- INFERIOR LEADS BORDERLINE ECG COMPARED TO ECG 09/28/2021 10:42:19 T-WAVE ABNORMALITY NOW PRESENT Electronically Signed On 03-12-2023 6:30:31 RN OCCUPATIONAL by Adolfo Yates D.O.
[2023-03-11 20:47] VITALS: BP 144/73; PULSE 93; RESP 17; TEMP 36.6; O2SAT 98
[2023-03-11 21:07] LABS: Basophils Absolute Auto 0.1 K/mm3 (0.0-0.1); Eosinophils Absolute Auto 0.3 K/mm3 (0-0.3); Eosinophils Percent Auto 2.8 % (0-4.4); Hematocrit 40.4 % (42.0-52.0); Hemoglobin 13.4 g/dL (14.0-18.0); Immature Granulocyte Absolute 0.03 K/mm3 (0.00-0.031); Immature Granulocyte Percent A 0.3 % (0-0.5); Immature Platelet Fraction Pct 22.3 % (0.9-11.2); Lymphocytes Absolute Auto 2.14 K/mm3 (0.9-3.2); Lymphocytes Percent Auto 23.8 % (18.3-44.2); Mean Corpuscular HGB Conc 33.2 g/dl (32-36); Mean Corpuscular Hemoglobin 32.3 pg (26-34); Mean Corpuscular Volume 97.3 fl (80-100); Mean Platelet Volume 13.5 fl (7.4-10.4); Monocytes Absolute Auto 1.1 K/mm3 (0.1-0.6); Monocytes Percent Auto 11.7 % (2.6-8.5); Neutrophils Absolute Auto 5.4 K/mm3 (1.3-6.7); Neutrophils Percent Auto 60.4 % (45.5-73.1); Platelet Count Result 137 k/mm3 (150-375); Red Blood Count 4.15 M/mm3 (4.6-6.20)
[2023-03-11 21:16] LABS: Alanine Aminotransferase 43 U/L (6-50); Albumin Level 4.3 g/dL (3.5-5.1); Alkaline Phosphatase 117 U/L (38-126); Anion Gap 11 mmol/L (8-16); Aspartate Amino Transferase 37 U/L (17-59); Bilirubin,Total 0.7 mg/dL (0.2-1.3); Blood Urea Nitrogen 14 mg/dL (9-20); Calcium 8.9 mg/dL (8.4-10.2); Carbon Dioxide 22 mmol/L (22-30); Chloride 103 mmol/L (98-107); Estimated CRCL calculation 109 ml/min; Estimated Glomerular Filt Rate > 60; Glucose 196 mg/dL (65-110); Lipase 36 U/L (23-300); Potassium 3.4 mmol/L (3.4-5.0); Prothrombin Time 14.1 Seconds (11.1-14.7); Sodium 136 mmol/L (137-145)
[2023-03-11 21:17] LABS: Partial Thromboplastin Time 31.8 SECONDS (22.3-36.8)
[2023-03-11 21:28] LABS: Troponin I 0.024 ng/mL (0.000-0.034)
[2023-03-12 00:55] LABS: Troponin I 0.022 ng/mL (0.000-0.034)
--- NOTE | 2023-03-12 00:58 | ED.GENADULT ---
HPI - General Adult General Chief complaint: Chest Pain Stated complaint: Chest pain, weakness, facial swelling Time Seen by Provider: 03/12/23 00:23 History of Present Illness HPI narrative: This is a 47-year-old male presenting ED with chief complaint of flu-like symptoms. Patient states he has not felt good since Saturday. Symptoms include body aches headache chills, and chest pain that is associated with cough. Patient has been taking NSAIDs with some relief. He is eating normally. Denies nausea vomiting or diarrhea. Denies sick contacts at home. He is only partially vaccinated against COVID she received 1 of 2 shots. Related Data Allergies Allergy/AdvReac Type Severity Reaction Status Date / Time baclofen AdvReac Intermediate Dyspnea / Verified 11/26/22 10:30 SOB PMFSH Past Medical History Medical History CAD (coronary artery disease) Hyperlipidemia Hypertension Surgical History Surgical History H/O spinal fusion Social History Social History Smoking packs per day: 0.5 Smoking cigarettes per day: 10.0 Years smoked: 30 Smoking pack-years: 15.00 Smoking status: Current every day smoker Tobacco type: cigarettes Spiritual care concerns: No Exam Narrative: APPEARANCE: No apparent distress. Head: atraumatic. EYES: EOMI, NOSE: Atraumatic NECK: Trachea midline RESPIRATORY: No increased rate of breathing, Clear to auscultation CARDIOVASCULAR: RRR, no peripheral edema ABDOMINAL: Non-distended, soft nontender MUSCULOSKELETAl: No obvious deformities NEURO: Alert. Moving 4/4 extremities SKIN:: Warm, dry. Normal color PSYCHIATRIC: Normal affect Course Vital Signs Vital signs: Vital Signs Temperature 97.9 F 03/11/23 20:47 Pulse Rate 93 03/11/23 20:47 Respiratory Rate 17 03/11/23 20:47 Blood Pressure 144/73 H 03/11/23 20:47 Pulse Oximetry 98 03/11/23 20:47 Temperature 97.9 F 03/11/23 20:47 Pulse Rate 93 03/11/23 20:47 Respiratory Rate 17 03/11/23 20:47 Blood Pressure 144/73 H 03/11/23 20:47 Pulse Oximetry 98 03/11/23 20:47 Medical Decision Making MDM Narrative Medical decision making narrative: -Course: this is a 47-year-old male presenting ED with flu-like symptoms for 3 days. Due to his previous cardiac history they came to emergency department to be evaluated for ACS. Troponins are within normal limits and stable. EKG unremarkable. chest x-ray unremarkable. Chest discomfort is non cardiac. COVID flu RSV negative. Patient's history and physical most consistent with viral syndrome. Patient will be discharged with supportive therapy and report return precautions. 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 CBC within normal limits. Troponins within normal limits and stable. Chest x-ray unremarkable. Viral swabs negative. Independent EKG interpretation: Rhythm [sinus], Rate [90], [place] -[normal], [place] -[normal], QRS [narrow], QTC [normal], T waves -[negative for concerning inversions], ST Segments - [Negative for concerning elevations] Final interpretations: [Normal Sinus Rhythm] -Interventions: 1 L normal saline, Tylenol -Shared decision making / Disposition: discharged -RX Tylenol Vital Signs Vital Signs: Vital Signs Temperature 97.9 F 03/11/23 20:47 Pulse Rate 93 03/11/23 20:47 Respiratory Rate 17 03/11/23 20:47 Blood Pressure 144/73 H 03/11/23 20:47 Pulse Oximetry 98 03/11/23 20:47 Temperature 97.9 F 03/11/23 20:47 Pulse Rate 93 03/11/23 20:47 Respiratory Rate 17 03/11/23 20:47
[2023-03-12] MEDS: ACETAMINOPHEN 500 MG TABLET 1000 MG PO (01:07)
[2023-03-12] MEDS: SODIUM CHLORIDE 0.9% IV 1,000 ML 999 ML IV CONT (01:07)
[2023-03-12 01:51] LABS: Influenza A QL RT-PCR Negative (Negative); Influenza B QL RT-PCR Negative (Negative); RSV RNA, RT-PCR Negative (Negative); SARS-CoV-2 RNA PCR Negative (Negative)
[2023-03-12 02:47] VITALS: BP 126/66; PULSE 72; RESP 15; O2SAT 100
== END 2023-03-12 02:48 | disposition home or self-care (01) ==
PROVIDERS: Emergency Provider Emergency Medicine; PCP Family Medicine
DX: B34.9 Viral infection, unspecified (principal); Z20.822 Contact with and (suspected) exposure to COVID-19; I25.10 Atherosclerotic heart disease of native coronary artery without angina pectoris; I10 Essential (primary) hypertension; E78.5 Hyperlipidemia, unspecified; F17.210 Nicotine dependence, cigarettes, uncomplicated; Z28.311 Partially vaccinated for COVID-19; Z98.1 Arthrodesis status; R94.31 Abnormal electrocardiogram [ECG] [EKG]
CPT/HCPCS: 36415; 71046; 80053; 83690; 84484; 85025; 85055; 85610; 85730; 87637; 93005; 96360; 99284; A9270; J7030

== ENCOUNTER 2023-03-13 09:59 | Emergency (ER) | payer OTHER, SELFPAY ==
[2023-03-13 10:30] VITALS: BP 132/86; PULSE 76; RESP 16; O2SAT 98
[2023-03-13 10:34] VITALS: BP 132/86; RESP 16; TEMP 36.3; O2SAT 100
[2023-03-13] MEDS: FAMOTIDINE 20 MG/2 ML VIAL IV PUSH (10:55)
[2023-03-13] MEDS: methylPREDNISolone SOD SUCC 125 MG VIAL IV PUSH (10:55)
[2023-03-13] MEDS: diphenhydrAMINE HCl INJ 50 MG/ML VIAL 25 MG IV PUSH (10:55)
[2023-03-13 11:00] LABS: Basophils Absolute Auto 0.1 K/mm3 (0.0-0.1); Basophils Percent Auto 1.2 % (0.2-1.2); Eosinophils Absolute Auto 0.2 K/mm3 (0-0.3); Eosinophils Percent Auto 2.5 % (0-4.4); Hematocrit 40.9 % (42.0-52.0); Hemoglobin 13.5 g/dL (14.0-18.0); Immature Granulocyte Absolute 0.04 K/mm3 (0.00-0.031); Immature Granulocyte Percent A 0.5 % (0-0.5); Lymphocytes Absolute Auto 1.54 K/mm3 (0.9-3.2); Lymphocytes Percent Auto 20.1 % (18.3-44.2); Mean Corpuscular Hemoglobin 32.2 pg (26-34); Mean Corpuscular Volume 97.6 fl (80-100); Mean Platelet Volume 12.9 fl (7.4-10.4); Monocytes Absolute Auto 1.4 K/mm3 (0.1-0.6); Monocytes Percent Auto 17.6 % (2.6-8.5); Neutrophils Absolute Auto 4.5 K/mm3 (1.3-6.7); Neutrophils Percent Auto 58.1 % (45.5-73.1); Platelet Count Result 118 k/mm3 (150-375); Red Blood Count 4.19 M/mm3 (4.6-6.20); Red Cell Distribution Width 12.9 % (11.5-14.5); White Blood Count 7.7 K/mm3 (4.5-10.0)
[2023-03-13 11:13] LABS: Alanine Aminotransferase 41 U/L (6-50); Albumin Level 4.2 g/dL (3.5-5.1); Alkaline Phosphatase 119 U/L (38-126); Anion Gap 6 mmol/L (8-16); Aspartate Amino Transferase 31 U/L (17-59); Bilirubin,Total 0.8 mg/dL (0.2-1.3); Blood Urea Nitrogen 12 mg/dL (9-20); Calcium 9.1 mg/dL (8.4-10.2); Carbon Dioxide 23 mmol/L (22-30); Chloride 106 mmol/L (98-107); Estimated CRCL calculation 127 ml/min; Estimated Glomerular Filt Rate > 60; Glucose 120 mg/dL (65-110); Sodium 135 mmol/L (137-145)
[2023-03-13 11:30] VITALS: BP 132/84; PULSE 71; RESP 16; O2SAT 98
--- NOTE | 2023-03-13 13:00 | ED.GENADULT ---
HPI - General Adult General Chief complaint: Unspecified Stated complaint: facial swelling Time Seen by Provider: 03/13/23 10:30 History of Present Illness HPI narrative: Patient is a 47-year-old male who presents ER with swelling beneath his eyes. Ongoing for couple days. Worse this morning. Also concerned that maybe he is swelling beneath his tongue. No difficulty breathing or swallowing. He has had sinus congestion for the duration of this. Occasional cough. No nausea or vomiting. Tried some Benadryl last night with no improvement. Related Data Allergies Allergy/AdvReac Type Severity Reaction Status Date / Time baclofen AdvReac Intermediate Dyspnea / Verified 11/26/22 10:30 SOB Review of Systems Eyes: Comments: Periorbital edema ENT: Reports nasal congestion, Denies sore throat and Denies throat swelling PMFSH Past Medical History Medical History CAD (coronary artery disease) Hyperlipidemia Hypertension Surgical History Surgical History H/O spinal fusion Social History Social History Smoking packs per day: 0.5 Smoking cigarettes per day: 10.0 Years smoked: 30 Smoking pack-years: 15.00 Smoking status: Current every day smoker Tobacco type: cigarettes Spiritual care concerns: No Exam Narrative: GENERAL: Well-appearing, well-nourished, and in no acute distress. HEAD: Normocephalic, atraumatic. EYES: PERRL and EOMI. Mild edema to the infraorbital regions of the eyes but not the actual lids. ENT: Mucous membranes moist. No observable angioedema of the tongue/sublingual area. Normal-appearing posterior oropharynx NECK: Supple. CHEST: Clear to auscultation. No respiratory distress. HEART: Regular rate and rhythm. Normal peripheral pulses. EXTREMITIES: Normal range of motion. No edema. NEURO: Alert and oriented x3. PSYCH: Normal mood and affect. Course Course Emergency Course: Patient resting comfortably. No change in symptoms. Discharge home with Flonase. Vital Signs Vital signs: Vital Signs Pulse Rate 76 03/13/23 10:30 Respiratory Rate 16 03/13/23 10:30 Blood Pressure 132/86 03/13/23 10:30 Pulse Oximetry 98 03/13/23 10:30 Temperature 97.3 F L 03/13/23 10:34 Pulse Rate 71 03/13/23 11:30 Respiratory Rate 16 03/13/23 11:30 Blood Pressure 132/84 03/13/23 11:30 Pulse Oximetry 98 03/13/23 11:30 Oxygen Delivery Room Air 03/13/23 10:34 Medical Decision Making Vital Signs Vital Signs: Vital Signs Pulse Rate 76 03/13/23 10:30 Respiratory Rate 16 03/13/23 10:30 Blood Pressure 132/86 03/13/23 10:30 Pulse Oximetry 98 03/13/23 10:30 Temperature 97.3 F L 03/13/23 10:34 Pulse Rate 71 03/13/23 11:30 Respiratory Rate 16 03/13/23 11:30 Blood Pressure 132/84 03/13/23 11:30 Pulse Oximetry 98 03/13/23 11:30 Oxygen Delivery Room Air 03/13/23 10:34 Lab Data 03/13/23 10:51 03/13/23 10:51 Labs: Lab Results 03/13/23 Range/Units 10:51 WBC 7.7 (4.5-10.0) K/mm3 RBC 4.19 L (4.6-6.20) M/mm3 Hgb 13.5 L (14.0-18.0) g/dL Hct 40.9 L (42.0-52.0) % MCV 97.6 (80-100) fl MCH 32.2 (26-34) pg MCHC 33.0 (32-36) g/dl RDW 12.9 (11.5-14.5) % Plt Count 118 L (150-375) k/mm3 MPV 12.9 H (7.4-10.4) fl Immature Gran % (Auto) 0.5 (0-0.5) % Neut % (Auto) 58.1 (45.5-73.1) % Lymph % (Auto) 20.1 (18.3-44.2) % [place] % (Auto) 17.6 H (2.6-8.5) % Eos % (Auto) 2.5 (0-4.4) % Baso % (Auto) 1.2 (0.2-1.2) % Lymph # (Auto) 1.54 (0.9-3.2) K/mm3 [place] # (Auto) 1.4 H (0.1-0.6) K/mm3 Eos # (Auto) 0.2 (0-0.3) K/mm3 Baso # (Auto) 0.1 (0.0-0.1) K/mm3 Abs Immat Gran (auto) 0.04 H (0.00-0.031) K/mm3 Absolute Neuts (auto) 4.5 (1.3-6.7) K/mm3 Absolute Nucleated RBC 0.0 (0
== END 2023-03-13 13:16 | disposition home or self-care (01) ==
PROVIDERS: Emergency Provider Emergency Medicine; PCP Family Medicine
DX: J06.9 Acute upper respiratory infection, unspecified (principal); I25.10 Atherosclerotic heart disease of native coronary artery without angina pectoris; I10 Essential (primary) hypertension; E78.5 Hyperlipidemia, unspecified; Z98.1 Arthrodesis status; F17.210 Nicotine dependence, cigarettes, uncomplicated
CPT/HCPCS: 36415; 80053; 85025; 96374; 96375; 99284; J1200; J2930

== ENCOUNTER 2023-04-18 14:13 | Outpatient (CLI) | payer OTHER, SELFPAY ==
--- NOTE | ~2023-04-18 | CT_ITS ---
EXAMINATION: CT diagnostic chest wo con DATE: 04/18/2023 14:29 INDICATION: DISORDERS OF LUNG TECHNIQUE: Computed tomography (CT) of the chest was performed to sort is of lung intravenous contras t. Additional 3D reconstructions utilizing coronal maximum intensity projection (MIP) were performed. Automated exposure control and iterative reconstruction technique were employed. The dose-length pro duct was 403.87 mGy-cm. COMPARISON: CT abdomen and pelvis dated 09/25/2022 FINDINGS: 11 mm and 7 mm pleural-based pulmonary nodules at the anterobasilar segment of the right lower lobe. Additional 5 mm and 2 mm nodule in the posterior segment of the left upper lobe. A couple additional 2 mm right upper lobe pulmonary nodules. 2 mm calcified nodules in the right middle lobe consistent w ith old granulomatous disease. Mild dependent atelectasis in the bilateral lower lobes. Heart size is normal. Atherosclerotic coronary artery calcific lesions. No pericardial or pleural effusion. No pat hologically enlarged thoracic lymphadenopathy. Mild bilateral gynecomastia. Visualized upper abdomen is unremarkable. Mild S-shaped curvature of the thoracic spine with mild to moderate spondylosis. IMPRESSION: 1. A few bilateral pulmonary nodules, the largest in the right lower lobe measuring 11 mm and 7 mm wh ich are new since CT abdomen dated 09/18/2021. Given the relatively rapid development in 6 months woul d favor an infectious/inflammatory etiology. Location would be challenging for percutaneous biopsy. C onsider either 3 month follow-up low-dose noncontrast chest CT or PET/CT for further evaluation. Reviewed, dictated and finalized at location A. HERER IMPRESSION: 1. A few bilateral pulmonary nodules, the largest in the right lower lobe measu ring 11 mm and 7 mm which are new since CT abdomen dated 09/18/2021. Given the r elatively rapid development in 6 months would favor an infectious/inflammatory etiology. Location would be challenging for percutaneous biopsy. Consider eithe r 3 month follow-up low-dose noncontrast chest CT or PET/CT for further evaluat ion.
== END 2023-04-18 14:14 | disposition home or self-care (01) ==
LOC: ANHIMG 14:18
PROVIDERS: PCP Family Medicine; Visit Provider Nurse Practitioner Adult Health
DX: J98.4 Other disorders of lung (principal); R91.8 Other nonspecific abnormal finding of lung field
CPT/HCPCS: 71250

== ENCOUNTER 2024-01-30 15:44 | Outpatient (CLI) | payer OTHER, SELFPAY ==
[2024-01-30 16:28] LABS: Basophils Absolute Auto 0.1 K/mm3 (0.0-0.1); Basophils Percent Auto 0.9 % (0.2-1.2); Eosinophils Absolute Auto 0.1 K/mm3 (0-0.3); Eosinophils Percent Auto 0.7 % (0-4.4); Hematocrit 43.7 % (42.0-52.0); Hemoglobin 15.1 g/dL (14.0-18.0); Immature Granulocyte Absolute 0.07 K/mm3 (0.00-0.031); Immature Granulocyte Percent A 0.6 % (0-0.5); Immature Platelet Fraction Pct 22.5 % (0.9-11.2); Lymphocytes Absolute Auto 2.83 K/mm3 (0.9-3.2); Lymphocytes Percent Auto 25.8 % (18.3-44.2); Mean Corpuscular HGB Conc 34.6 g/dl (32-36); Mean Corpuscular Hemoglobin 33.2 pg (26-34); Monocytes Absolute Auto 1.1 K/mm3 (0.1-0.6); Monocytes Percent Auto 9.8 % (2.6-8.5); Neutrophils Absolute Auto 6.8 K/mm3 (1.3-6.7); Neutrophils Percent Auto 62.2 % (45.5-73.1); Red Blood Count 4.55 M/mm3 (4.6-6.20); Red Cell Distribution Width 13.1 % (11.5-14.5)
[2024-01-30 16:37] LABS: Alanine Aminotransferase 49 U/L (6-50); Albumin Level 4.9 g/dL (3.5-5.1); Alkaline Phosphatase 101 U/L (38-126); Anion Gap 14 mmol/L (4-12); Aspartate Amino Transferase 41 U/L (17-59); Bilirubin,Total 0.6 mg/dL (0.2-1.3); Blood Urea Nitrogen 15 mg/dL (9-20); Calcium 9.4 mg/dL (8.4-10.2); Carbon Dioxide 23 mmol/L (22-30); Chloride 102 mmol/L (98-107); Cholesterol 246 mg/dL (0-200); Estimated Glomerular Filt Rate > 60; Glucose 131 mg/dL (65-110); HDL Direct 53 mg/dL; Potassium 3.7 mmol/L (3.4-5.0); Sodium 139 mmol/L (137-145); Triglycerides 187 mg/dL (<150)
[2024-01-30 16:48] LABS: LDL Cholesterol Direct 154 mg/dL
[2024-01-30 17:09] LABS: Prostate Specific Antigen 0.5 ng/mL (< OR = 4.0)
[2024-01-30 17:14] LABS: Hemoglobin A1C 6.7 % (<5.7)
== END 2024-01-30 15:45 | disposition home or self-care (01) ==
LOC: ANHLAB 15:50
PROVIDERS: PCP Family Medicine; Visit Provider Family Medicine
DX: R53.83 Other fatigue (principal); Z12.5 Encounter for screening for malignant neoplasm of prostate; E78.5 Hyperlipidemia, unspecified; R73.01 Impaired fasting glucose
CPT/HCPCS: 36415; 80053; 80061; 83036; 84153; 85025; 85055; G0103

== ENCOUNTER 2024-05-18 08:31 | Outpatient (CLI) | payer OTHER, SELFPAY ==
[2024-05-18 09:01] LABS: Basophils Absolute Auto 0.1 K/mm3 (0.0-0.1); Basophils Percent Auto 0.9 % (0.2-1.2); Eosinophils Absolute Auto 0.2 K/mm3 (0-0.3); Eosinophils Percent Auto 1.4 % (0-4.4); Hematocrit 42.6 % (42.0-52.0); Hemoglobin 14.2 g/dL (14.0-18.0); Immature Granulocyte Absolute 0.11 K/mm3 (0.00-0.031); Immature Platelet Fraction Pct 22.2 % (0.9-11.2); Lymphocytes Absolute Auto 2.28 K/mm3 (0.9-3.2); Lymphocytes Percent Auto 20.9 % (18.3-44.2); Mean Corpuscular HGB Conc 33.3 g/dl (32-36); Mean Corpuscular Hemoglobin 32.1 pg (26-34); Mean Corpuscular Volume 96.4 fl (80-100); Mean Platelet Volume 13.2 fl (7.4-10.4); Monocytes Absolute Auto 1.1 K/mm3 (0.1-0.6); Monocytes Percent Auto 10.3 % (2.6-8.5); Neutrophils Absolute Auto 7.2 K/mm3 (1.3-6.7); Neutrophils Percent Auto 65.5 % (45.5-73.1); Platelet Count Result 147 k/mm3 (150-375); Red Blood Count 4.42 M/mm3 (4.6-6.20); Red Cell Distribution Width 13.3 % (11.5-14.5); White Blood Count 10.9 K/mm3 (4.5-10.0)
[2024-05-18 09:09] LABS: Alanine Aminotransferase 35 U/L (6-50); Alkaline Phosphatase 132 U/L (38-126); Anion Gap 4 mmol/L (4-12); Aspartate Amino Transferase 26 U/L (17-59); Bilirubin,Total 0.6 mg/dL (0.2-1.3); Blood Urea Nitrogen 13 mg/dL (9-20); Calcium 8.9 mg/dL (8.4-10.2); Carbon Dioxide 27 mmol/L (22-30); Chloride 107 mmol/L (98-107); Cholesterol 160 mg/dL (0-200); Estimated Glomerular Filt Rate > 60; Glucose 160 mg/dL (65-110); HDL Direct 46 mg/dL; Potassium 3.9 mmol/L (3.4-5.0); Sodium 138 mmol/L (137-145); Triglycerides 126 mg/dL (<150)
[2024-05-18 09:21] LABS: LDL Cholesterol Direct 82 mg/dL
[2024-05-18 09:34] LABS: Free T4 Free Thyroxine 0.82 ng/dL (0.78-2.19)
[2024-05-18 09:40] LABS: Total Triiodothyronine (T3) 1.19 NG/ML (0.97-1.69)
[2024-05-18 10:27] LABS: Large Platelets Present; Platelet Estimate Decreased (Adequate); Schistocytes None Seen
== END 2024-05-18 08:32 | disposition home or self-care (01) ==
LOC: ANHLAB 08:33
PROVIDERS: PCP Family Medicine
DX: R53.83 Other fatigue (principal); E78.5 Hyperlipidemia, unspecified; E66.9 Obesity, unspecified; E11.9 Type 2 diabetes mellitus without complications
CPT/HCPCS: 36415; 80053; 80061; 84439; 84443; 84480; 85025; 85055